=== PATIENT | female | born 1995 | race Caucasian/White ===

== ENCOUNTER 2020-03-29 17:30 | Inpatient (IN) ==
[~2020-03-29 17:30] MED LIST: Famotidine 20 MG/2 ML VIAL IVP PRN; Metoclopramide 10 MG/2 ML VIAL IVP PRN; Naloxone 0.4 MG/ML INJ IVP PRN; Oxytocin 20 units/ LR 1000 mL 20 UNIT/1,000 ML BAG IVC SCH; Ringers Solution, Lactated 1,000 ML IVC SCH
[2020-03-29] MEDS ORDERED: Penicillin G Potassium 5,000,000 UNIT in 0.9 % Sodium Chloride Mini Bag 100 ML IVPB ONE (18:14)
[2020-03-29 18:16] LABS: Basophils % 0.3 %; Eosinophils # 0.1 K/mcL (0.0-0.6); Eosinophils % 0.5 %; Hemoglobin 12.6 g/dL (11.5-15.4); Immature Granulocytes % 0.7 % (0-4); Lymphocytes # 1.9 K/mcL (0.6-4.6); Lymphocytes % 12.7 %; Mean Corpuscular HGB Conc 33.2 g/dL (31.6-35.5); Mean Corpuscular Hemoglobin 28.8 pg (28.0-33.3); Mean Corpuscular Volume 86.8 fL (83.0-100.0); Mean Platelet Volume 9.4 fL (9.4-12.4); Monocytes # 0.8 K/mcL (0.0-1.3); Platelet Count 389 K/mcL (140-400); Red Blood Count 4.38 M/mcL (3.82-4.97); Red Cell Distribution Width 11.9 % (11.5-14.5); Segmented Neutrophils % 80.8 %; White Blood Count 14.9 K/mcL (4.3-11.1)
[2020-03-29 18:23] LABS: Amphetamine Screen,Urine Negative ng/mL (Cutoff=1000); Barbiturate Screen,Urine Negative ng/mL (Cutoff=200); Benzodiazepines Screen,Urine Negative ng/mL (Cutoff=200); Cannabinoid Screen,Urine Negative ng/mL (Cutoff = 50); Cocaine Screen,Urine Negative ng/mL (Cutoff= 300); Opiate Screen,Urine Negative ng/mL (Cutoff=300); Phencyclidine Screen,Urine Negative ng/mL (Cutoff=25)
[2020-03-29 18:48] LABS: Influenza A PCR Negative (Negative); Influenza B PCR Negative (Negative); Resp. Syncytial Virus PCR Negative (Negative)
[2020-03-29 18:49] LABS: SARS-CoV-2 by PCR (In House) Negative (Negative)
[2020-03-29] MEDS ORDERED: Penicillin G Potassium 2,500,000 UNIT/105 ML MLS IVPB SCH (22:00)
[2020-03-29] MEDS ORDERED: Epidural Premix (fent/bupiv) 110 ML EP ONE (23:43)
[2020-03-30] MEDS ORDERED: EPHEDrine 50 MG/ML VIAL ONE (01:03)
[2020-03-30] MEDS ORDERED: Ondansetron 4 MG/2 ML VIAL ONE (01:08)
[2020-03-30] MEDS ORDERED: EPHEDrine 50 MG/ML VIAL IVP PRN (01:11)
[2020-03-30] MEDS ORDERED: Epidural Premix (fent/bupiv) 110 ML EP SCH (01:15)
[2020-03-30] MEDS ORDERED: Oxytocin 20 units/ LR 1000 mL 20 UNIT/1,000 ML BAG IVC SCH (04:41)
[2020-03-30] MEDS ORDERED: Measles/Mumps/Rubella Vacc 0.5 ML VIAL SQ PRN (04:41)
[2020-03-30] MEDS ORDERED: Rho Immune Globulin 1,500 UNIT SYRINGE IM PRN (04:41)
[2020-03-30] MEDS ORDERED: Sennosides 8.6 MG TABLET PO PRN (04:41)
[2020-03-30] MEDS ORDERED: Lanolin 7 G OINT...G. TP PRN (04:41)
[2020-03-30] MEDS ORDERED: Benzocaine/Menthol 56 GM AEROSOL SPRAY TP PRN (04:41)
[2020-03-30] MEDS ORDERED: Oxytocin 20 units/ LR 1000 mL 20 UNIT/1,000 ML BAG IVC ONE (04:41)
[2020-03-30] MEDS: Ibuprofen 600 MG TABLET PO SCH ×3 (05:42→21:22)
[2020-03-30] MEDS ORDERED: Ondansetron 4 MG/2 ML VIAL IVP SCH (06:00)
[2020-03-30] MEDS: Prenatal Vit/FA 1 EACH TABLET PO SCH (07:41)
[2020-03-30] MEDS ORDERED: NON-FORMULARY MEDICATION 1 EACH EACH (Prenat 115/Iron Fum/Folic/Dss [Prenatal 19 Tablet] 1 PO SCH (09:00)
[2020-03-30] MEDS: Acetaminophen 325 MG TABLET PO PRN (09:07)
[2020-03-31 05:54] LABS: Basophils % 0.5 %; Eosinophils # 0.2 K/mcL (0.0-0.6); Eosinophils % 1.9 %; Hematocrit 33.3 % (35.3-44.9); Hemoglobin 11.1 g/dL (11.5-15.4); Immature Granulocytes % 0.8 % (0-4); Lymphocytes % 23.2 %; Mean Corpuscular HGB Conc 33.3 g/dL (31.6-35.5); Mean Corpuscular Hemoglobin 29.9 pg (28.0-33.3); Mean Corpuscular Volume 89.8 fL (83.0-100.0); Mean Platelet Volume 9.3 fL (9.4-12.4); Monocytes # 0.5 K/mcL (0.0-1.3); Monocytes % 5.2 %; Platelet Count 257 K/mcL (140-400); Red Blood Count 3.71 M/mcL (3.82-4.97); Red Cell Distribution Width 12.1 % (11.5-14.5); Segmented Neutrophils % 68.4 %; White Blood Count 8.8 K/mcL (4.3-11.1)
[2020-03-31] MEDS: Ibuprofen 600 MG TABLET PO SCH ×2 (08:05→12:45)
[2020-03-31] MEDS: Prenatal Vit/FA 1 EACH TABLET PO SCH (08:05)
[2020-03-31 08:23] VITALS: BP 106/61
[2020-03-31] MEDS: Acetaminophen 325 MG TABLET PO PRN (12:45)
== END 2020-03-31 14:00 | disposition home or self-care (01) | DRG 807 ==
LOC: 1NENULAB → 1NENUOBS 03-30 04:53
PROVIDERS: ADMIT Student in an Organized Health Care Education/Training Program; ATTEND Student in an Organized Health Care Education/Training Program